=== PATIENT | male | born 1950 | race Hispanic/Latino ===

== ENCOUNTER 2018-03-10 06:35 | Day surgery (SDC) | payer MEDICARE ==
[2018-03-03 11:16] VITALS: BMI 30.7
[2018-03-10] MEDS ORDERED: Lidocaine PF 2% (5 ml) Inj (For Cardiac Arrhy) ONE (06:47)
[2018-03-10 07:14] LABS: BASO # 0.02 K/mm3 (0.0-2.0); BASO % 0.4 % (0.0-3.0); EOS # 0.3 (0.0-0.7); EOS % 5.6 % (1.5-5.0); GRAN # 3.33 (1.4-6.5); GRAN % 59.9 % (50.0-68.0); HEMOGLOBIN 14.1 g/dL (14.0-18.0); LYMPH # 1.5 (1.2-3.4); LYMPH % 27.3 % (22.0-35.0); MEAN CELL VOLUME 92.1 fl (80.0-105.0); MEAN CORPUSCULAR HGB CONC 33.7 g/dl (31.0-37.0); MONO # 0.4 (0.1-0.6); MONO % 6.8 % (1.0-6.0); RBC 4.55 10^6/uL (3.5-6.1); RED CELL DISTRIBUTION WIDTH 13.2 % (11.5-14.5); WHITE BLOOD COUNT 5.6 10^3/ul (4.5-11.0)
[2018-03-10 07:27] LABS: INR 1.08; PROTHROMBIN TIME 12.4 SECONDS (9.4-12.5)
[2018-03-10 07:30] LABS: PARTIAL THROMBOPLASTIN TIME 28.5 Seconds (25.1-36.5)
[2018-03-10 07:33] LABS: BLOOD UREA NITROGEN 14 mg/dL (7-21); CALCIUM 9.4 mg/dL (8.4-10.5); GFR AFRICAN-AMERICAN > 60; GFR NON-AFRICAN AMERICAN > 60
[2018-03-10] MEDS ORDERED: Iodixanol 320 MG/ML 200 ML BOTTLE IV ONE (08:11)
[2018-03-10] MEDS ORDERED: Midazolam 2 MG/2 ML VIAL ONE ×2 (09:09→09:27)
[2018-03-10] MEDS ORDERED: Sodium Chloride 0.9% 1,000 ML IV SCH (10:15)
--- NOTE | 2018-03-10 14:43 | CARDCATH ---
Copied To: Aguila Villanueva MD Attending MD: Aguila Villanueva MD PROCEDURE DATE: 03/10/2018 HISTORY: The patient is a 68-year-old male who presents with progressive exertional angina. His stress test was abnormal. His cardiac risk factors includes hypertension and hypercholesterolemia. Because of this, cardiac catheterization was recommended. PROCEDURE: Left heart catheterization with coronary arteriography, left ventriculogram, followed by percutaneous transluminal coronary angioplasty and stent of an ostial posterior descending artery of the right coronary artery. The right femoral artery was cannulated with a 6-Telugu sheath. There were no complications. I performed moderate sedation which included the presence of an independent trained observer that assisted in monitoring the patient's level of consciousness and physiologic status. After administration of Versed and fentanyl, my intra service time was 30 minutes. The findings on catheterization revealed a right dominant circulation. The RCA revealed 80-90% stenosis in the ostium of the PDA of the RCA. The left main artery was unremarkable. The LAD was a small vessel after the takeoff of a large diagonal vessel. In the LAD after the diagonal vessel, there was a 70-80% stenosis noted, which did not change with IC nitroglycerin. The diagonal vessel was a large vessel that paralleled and over the most of the distribution of the anterior wall. The circumflex artery and obtuse marginal branches were free of significant disease. The LV function is normal with an EF of 60%. The patient was started on intravenous Angiomax under the fluoroscopic guide, the guiding catheter was placed in the ostium of the RCA and 0.014 ATW wire was used to cross the ostial lesion of the PDA. A 3 x 8 mm drug-eluting stent was placed and deployed at the ostium of the PDA and deployed at 12 atmospheres of pressure. Repeat coronary arteriography revealed an excellent result with no residual stenosis and FAHAD III flow. Angio-Seal was used to close the femoral artery site. The patient tolerated the procedure well. In summary, the procedure was successful PTCA and stent of the RCA with a drug-eluting stent. Given these findings, the patient will need to remain on aspirin indefinitely and Plavix for least a year and undergo strict cardiac risk reduction program. We will consider angioplasty of the LAD only if the patient continues to have symptoms. The patency rate of the small LAD is decreased because of its small caliber. Aguila Villanueva MD [facility] # [id number]
[2018-03-10 17:40] VITALS: RESP 20
--- NOTE | 2018-03-10 20:53 | CARD ---
APPROVED REPORT Date of service: 03/10/2018 EKG Measurement Heart [id number] 162P45 [id number] <Conclusion> Normal sinus rhythm Normal ECG
[2018-03-11 06:47] VITALS: TEMP 97.8
[2018-03-11 07:27] LABS: BASO # 0.01 K/mm3 (0.0-2.0); BASO % 0.2 % (0.0-3.0); EOS # 0.3 (0.0-0.7); EOS % 4.4 % (1.5-5.0); GRAN # 4.25 (1.4-6.5); GRAN % 68.6 % (50.0-68.0); HEMOGLOBIN 14.6 g/dL (14.0-18.0); LYMPH # 1.2 (1.2-3.4); MEAN CELL VOLUME 90.9 fl (80.0-105.0); MEAN CORPUSCULAR HEMOGLOBIN 31.6 pg (25.0-35.0); MEAN CORPUSCULAR HGB CONC 34.8 g/dl (31.0-37.0); MEAN PLATELET VOLUME 9.1 fl (7.0-11.0); MONO # 0.4 (0.1-0.6); MONO % 6.8 % (1.0-6.0); RBC 4.62 10^6/uL (3.5-6.1); WHITE BLOOD COUNT 6.2 10^3/ul (4.5-11.0)
[2018-03-11 08:11] LABS: BLOOD UREA NITROGEN 10 mg/dL (7-21); CALCIUM 9.3 mg/dL (8.4-10.5); GFR AFRICAN-AMERICAN > 60; GFR NON-AFRICAN AMERICAN > 60
[2018-03-11 08:49] VITALS: O2SAT 97
--- NOTE | 2018-03-11 08:50 | CARD ---
APPROVED REPORT Date of service: 03/11/2018 EKG Measurement Heart [id number] [place] 152P52 [id number] <Conclusion> Normal sinus rhythm Normal ECG
--- NOTE | 2018-03-11 10:22 | PN ---
Copied To: Aguila Villanueva MD Attending MD: Aguila Villanueva MD DATE: 03/11/2018 CARDIOLOGY FOLLOWUP SUBJECTIVE: The patient is asymptomatic post PTCA. PHYSICAL EXAMINATION: VITAL SIGNS: Blood pressure varies from 163 to 187. NECK: Negative JVD. LUNGS: Without rales. HEART: Reveal S1, S2. EXTREMITIES: Without edema. The right groin site is stable. LABORATORY DATA: BUN and creatinine are unremarkable. Hemoglobin is 14.6. IMPRESSION: 1. Stable post percutaneous transluminal coronary angioplasty and stent of right coronary artery. 2. Hypertension. 3. Hypercholesterolemia. 4. Resolution of chest pain. Given these findings, the patient is stable for discharge. We will give a dose of lisinopril before his discharge given his hypertension. Followup instructions have been given to the patient in detail. Aguila Villanueva MD
[2018-03-11 10:30] VITALS: BP 164/91; PULSE 70
--- NOTE | 2018-03-13 10:04 | CARD ---
APPROVED REPORT Date of service: 03/10/2018 EKG Measurement Heart [id number] [place] 164P65 [id number] <Conclusion> Normal sinus rhythm Normal ECG
== END 2018-03-11 11:26 | disposition home or self-care (01) ==
LOC: CATH 06:35 → 2RSO 10:18 → CATH 03-11 11:26
PROVIDERS: ATTEND Internal Medicine
DX: I25.118 Atherosclerotic heart disease of native coronary artery with other forms of angina pectoris (principal); I10 Essential (primary) hypertension; E78.00 Pure hypercholesterolemia, unspecified
CPT/HCPCS: 36415 ×2; 80048 ×2; 85025 ×2; 85610; 85730; 86850; 86900; 93005 ×2; 93458; 99152; 99153; C1760; C1769 ×2; C1874; C1887; C2629; C9600; J0583; J1644; J2250; J3010; J7030; Q9966

== ENCOUNTER 2018-03-20 16:34 | Observation (INO) | payer MEDICARE ==
[2018-03-20 16:41] VITALS: BMI 29.5
--- NOTE | 2018-03-20 17:09 | ED PDOC ---
Arrival/HPI - General Chief Complaint: Chest Pain Time Seen by Provider: 03/20/18 16:39 Historian: Patient - History of Present Illness Narrative History of Present Illness (Text): 03/20/18 16:48 A 68 year old male, whose past medical history includes Coronary Artery Disease and status post cardiac cath one stent placement, presents to the emergency department complaining of left sided chest pain and dyspnea on exertion. 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 Patient notes he is taking Plavix and has a recently increased dose of Lisinopril. Patient denies any fever, chills, chest pain, shortness of breath, nausea, vomiting, diarrhea, urinary symptoms, back pain, neck pain, headache, dizziness, or any other complaints. Dial Maker: Dr. Villanueva Time/Duration: < week (6 days) Symptom Onset: Gradual Symptom Course: Unchanged Context: Home Past Medical History - Provider Review Nursing Documentation Reviewed: Yes - Infectious Disease Hx of Infectious Diseases: None - Cardiac Hx Cardiac Disorders: Yes Hx Hypertension: Yes Hx Pacemaker: No Other/Comment: cardiac stent last wk - Pulmonary Hx Respiratory Disorders: No - Neurological Hx Paralysis: No - Endocrine/Metabolic Hx Endocrine Disorders: No - Hematological/Oncological Hx Blood Disorders: No Hx Blood Transfusions: No - Integumentary Hx Dermatological Disorder: No - Musculoskeletal/Rheumatological Hx Musculoskeletal Disorders: Yes - Psychiatric Hx Emotional Abuse: No Hx Physical Abuse: No Hx Substance Use: No - Anesthesia Hx Anesthesia Reactions: No Hx Malignant Hyperthermia: No - Suicidal Assessment Feels Threatened In Home Enviroment: No Family/Social History - Physician Review Nursing Documentation Reviewed: Yes Family/Social History: Unknown Family HX Smoking Status: Unknown If Ever Smoked Hx Alcohol Use: Yes (WINE) Hx Substance Use: No Allergies/Home Meds Allergies/Adverse Reactions: Allergies No Known Allergies Allergy (Verified 03/20/18 18:38) Home Medications: Home Meds Medication Instructions Recorded Confirmed Lisinopril [Zestril] 10 mg PO DAILY 03/01/18 03/11/18 Simvastatin [Zocor] 20 mg PO DAILY 03/01/18 03/10/18 Clopidogrel [Plavix] 75 mg PO DAILY 03/10/18 03/11/18 Review of Systems - Physician Review All systems were reviewed & negative as marked: Yes - Review of Systems Constitutional: absent: Fevers, Night Sweats Respiratory: absent: SOB Cardiovascular: Chest Pain, SIBLEY. absent: Normal, Palpitations, Edema, Calf Pain , Orthopnea, Syncope Gastrointestinal: absent: Diarrhea, Nausea, Vomiting Genitourinary Male: absent: Urinary Output Changes Musculoskeletal: absent: Back Pain, Neck Pain Neurological: absent: Headache, Dizziness Physical Exam Vital Signs Reviewed: Yes Vital Signs Temp Pulse Resp BP Pulse Ox 03/20/18 18:45 68 20 158/90 H 99 03/20/18 17:54 75 18 178/97 H 95 03/20/18 16:45 98.2 F 89 18 202/99 H 97 03/20/18 16:40 98.2 F 89 18 202/99 H 97 Temperature: Afebrile Blood Pressure: Hypertensive Pulse: Regular Respiratory Rate: Normal Appearance: Positive for: Well-Appearing, Non-Toxic, Comfortable Pain Distress: None Mental Status: Positive for: Alert and Oriented X 3 - Systems Exam Head: Present: Atraumatic, Normocephalic Pupils: Present: PERRL Extroacular Muscles: Present: EOMI Conjunctiva: Present: Normal Mouth: Present: Moist Mucous Membranes Neck: Present: Normal Range of Motion Respiratory/Chest: Present: Clear to Auscultation, Good Air Exchange. No: Respiratory Distress, Accessory Muscle Use Cardiovascular: Present: Regular Rate and Rhythm, Normal S1, S2. No: Murmurs Abdomen: No: Tenderness, Distention, Peritoneal Signs Back: Present: Normal Inspection Upper Extremity: Present: Normal Inspection. No: Cyanosis, Edema Lower Extremity: Present: Normal Inspection. No: Edema Neurological: Present: GCS=15, CN II-XII Intact, Speech Normal Skin: Present: Warm, Dry, Normal Color. No: Rashes Psychiatric: Present: Alert, Oriented x 3, Normal Insight, Normal Concentration Medical Decision Making ED Course and Treatment: 03/20/18 17:12 Impression: A 68 year old male presenting to the emergency department complaining of left sided chest pain and dyspnea on exertion. Plan: -- EKG -- Labs -- CBC -- COAG -- Chest X-ray -- Aspirin -- Urinalysis -- Reassess and disposition Prior Visits: Notes and results from previous visits were reviewed. Progress Notes: 03/20/18 17:[address] Uribe, who is aware and agrees with the Emergency Department management plan to admit patient to telemetry for further observation. 03/20/18 17:50 EKG: Ordered, reviewed, and independently interpreted the EKG. Rate : 89 BPM Rhythm : NSR Interpretation : No ST-segment elevations or depressions, no T-wave inversions, normal intervals. - Lab Interpretations Lab Results: 03/20/18 16:50 03/20/18 16:50 Lab Results 03/20/18 16:50: PT 12.5, INR 1.09, APTT 28.0 03/20/18 16:50: Sodium 142, Potassium 3.9, Chloride 104, Carbon Dioxide 26, Anion Gap 16, BUN 19, Creatinine 0.9, Est GFR ( Amer) > 60, Est GFR (Non- Af Amer) > 60, Random Glucose 100, Calcium 9.4, Magnesium 1.9, Total Bilirubin 0.8, AST 26, ALT 29, Alkaline Phosphatase 48, Lactate Dehydrogenase 446, Total Creatine Kinase 49, Troponin I < 0.01, NT-Pro-B Natriuret Pep 52.1, Total Protein 7.9, Albumin 4.7, Globulin 3.2, Albumin/Globulin Ratio 1.5 03/20/18 16:50: WBC 6.7, RBC 4.44, Hgb 13.8 L, Hct 40.5 L, MCV 91.2, MCH 31.1, MCHC 34.1, RDW 12.8, Plt Count 216, MPV 9.3, Gran % 54.2, Lymph % (Auto) 30.1, [place] % (Auto) 7.1 H, Eos % (Auto) 8.3 H, Baso % (Auto) 0.3, Gran # 3.61, Lymph # (Auto) 2.0, [place] # (Auto) 0.5, Eos # (Auto) 0.6, Baso # (Auto) 0.02 - RAD Interpretation Radiology Orders: 03/20/18 16:52 CHEST PORTABLE [RAD] Stat - Medication Orders Current Medication Orders: Ibuprofen (Motrin Tab) 600 mg PO Q6H PRN PRN Reason: Pain, moderate (4-7) Discontinued Medications Aspirin (Aspirin) 325 mg PO STAT STA Stop: 03/20/18 16:52 Last Admin: 03/20/18 17:11 Dose: 325 mg - Scribe Statement The provider has reviewed the documentation as recorded by the Yevgeniy Wilkins All medical record entries made by the Yevgeniy were at my direction and personally dictated by me. I have reviewed the chart and agree that the record accurately reflects my personal performance of the history, physical exam, medical decision making, and the department course for this patient. I have also personally directed, reviewed, and agree with the discharge instructions and disposition. Disposition/Present on Arrival - Present on Arrival Any Indicators Present on Arrival: No History of DVT/PE: No History of Uncontrolled Diabetes: No Urinary Catheter: No History of Decub. Ulcer: No History Surgical Site Infection Following: None - Disposition Have Diagnosis and Disposition been Completed?: Yes Diagnosis: Chest pain Disposition: HOSPITALIZED Disposition Time: 17:30 Condition: STABLE
[2018-03-20 17:20] LABS: BASO # 0.02 K/mm3 (0.0-2.0); BASO % 0.3 % (0.0-3.0); EOS # 0.6 (0.0-0.7); EOS % 8.3 % (1.5-5.0); GRAN # 3.61 (1.4-6.5); GRAN % 54.2 % (50.0-68.0); HEMOGLOBIN 13.8 g/dL (14.0-18.0); LYMPH % 30.1 % (22.0-35.0); MEAN CELL VOLUME 91.2 fl (80.0-105.0); MEAN CORPUSCULAR HEMOGLOBIN 31.1 pg (25.0-35.0); MEAN CORPUSCULAR HGB CONC 34.1 g/dl (31.0-37.0); MEAN PLATELET VOLUME 9.3 fl (7.0-11.0); MONO # 0.5 (0.1-0.6); MONO % 7.1 % (1.0-6.0); RBC 4.44 10^6/uL (3.5-6.1); RED CELL DISTRIBUTION WIDTH 12.8 % (11.5-14.5); WHITE BLOOD COUNT 6.7 10^3/ul (4.5-11.0)
[2018-03-20 17:23] LABS: INR 1.09; PROTHROMBIN TIME 12.5 SECONDS (9.4-12.5)
[2018-03-20 17:25] LABS: B-TYPE NATRIURETIC PEPTIDE 52.1 pg/mL (0-450); TROPONIN I < 0.01 ng/mL
[2018-03-20 17:27] LABS: ALB/GLOB RATIO 1.5 (1.1-1.8); ALBUMIN 4.7 g/dL (3.0-4.8); ALT/SGPT 29 U/L (7-56); AST/SGOT 26 U/L (17-59); BLOOD UREA NITROGEN 19 mg/dL (7-21); CALCIUM 9.4 mg/dL (8.4-10.5); GFR AFRICAN-AMERICAN > 60; GFR NON-AFRICAN AMERICAN > 60
--- NOTE | 2018-03-20 19:40 | CARD ---
APPROVED REPORT Date of service: 03/20/2018 EKG Measurement Heart [id number] RI 154P52 [id number] <Conclusion> Poor data quality, interpretation may be adversely affected Normal sinus rhythm Normal ECG
--- NOTE | 2018-03-21 03:22 | CP.PCM.PN ---
Subjective - Date & Time of Evaluation Date of Evaluation: 03/21/18 Time of Evaluation: 03:18 - Subjective Subjective: Ovidio Marley, PGY-1, Internal Medicine Progress note for Dr. Serrano 68 year old male with past medical history of CAD and status post cardiac cath stent placement presents with pressure like left sided chest pain and dyspnea on exertion. Patient seen and evaluated. Patient reports pressure like chest pain and dyspnea but does not report heart palpitations, jaw pain, left arm pain , or nausea or back pain. Objective - Vital Signs/Intake and Output Vital Signs (last 24 hours): Temp Pulse Resp BP Pulse Ox 98.2 F 68 18 158/90 H 99 03/20/18 16:45 03/20/18 18:45 03/21/18 00:04 03/20/18 18:45 03/20/18 18:45 - Medications Medications: Current Medications Ibuprofen (Motrin Tab) 600 mg PO Q6H PRN PRN Reason: Pain, moderate (4-7) - Labs Labs: PT 12.5 SECONDS (9.4-12.5) 03/20/18 16:50 INR 1.09 03/20/18 16:50 APTT 28.0 Seconds (25.1-36.5) 03/20/18 16:50 - Constitutional Appears: Well, Non-toxic - Head Exam Head Exam: ATRAUMATIC, NORMOCEPHALIC - Eye Exam Eye Exam: EOMI, Normal appearance, PERRL Pupil Exam: NORMAL ACCOMODATION, PERRL - ENT Exam ENT Exam: Mucous Membranes Moist, Normal Exam - Neck Exam Neck Exam: Full ROM, Normal Inspection. absent: Lymphadenopathy - Respiratory Exam Respiratory Exam: Clear to Ausculation Bilateral, NORMAL BREATHING PATTERN - Cardiovascular Exam Cardiovascular Exam: REGULAR RHYTHM, +S1, +S2. absent: Murmur - GI/Abdominal Exam GI & Abdominal Exam: Soft, Normal Bowel Sounds. absent: Tenderness - Extremities Exam Extremities Exam: Full ROM, Normal Capillary Refill, Normal Inspection. absent : Joint Swelling, Pedal Edema - Back Exam Back Exam: NORMAL INSPECTION - Neurological Exam Neurological Exam: Alert, Awake, CN II-XII Intact, Normal Gait, Oriented x3 - Psychiatric Exam Psychiatric exam: Normal Affect, Normal Mood - Skin Skin Exam: Dry, Intact, Normal Color, Warm Assessment and Plan - Assessment and Plan (Free Text) Assessment: 68 year old male with past medical history of coronary artery disease and status post cardiac cath with one stent placement presents with left sided chest pain and dyspnea. Plan: Chest pain 2/2 to ACS vs. MSK vs. pleuritis/pericarditis -EKG was ordered which showed normal sinus rhythm with a heart rate of 89. -Troponinsx3 was ordered. 2 troponins have shown troponin<0.01. Awaiting 3rd troponin level. -Motrin 600 mg Q6PRN for pain. -Start aspirin 81 daily -Continued home dose of plavix, lisinopril, and simvastatin. -Heart healthy diet -Dr. Villanueva, fast food shift lead, consulted for recommendations. Patient plan discussed with Dr. Serrano.
[2018-03-21 06:26] VITALS: O2SAT 95
--- NOTE | 2018-03-21 08:36 | RAD ---
Date of service: 03/20/2018 HISTORY: chest pain COMPARISON: No prior. FINDINGS: LUNGS: The lungs are well inflated and clear. PLEURA: No significant pleural effusion identified, no pneumothorax apparent. CARDIOVASCULAR: Normal. OSSEOUS STRUCTURES: No significant abnormalities. VISUALIZED UPPER ABDOMEN: Normal. OTHER FINDINGS: None. IMPRESSION: No active pulmonary disease.
--- NOTE | 2018-03-21 10:08 | HP ---
HISTORY OF PRESENT ILLNESS: The patient is a 68 year old man with a past medical history of hypertension, hyperlipidemia and CAD s/p PCI with GONZALO stent placement to the RCA who presented for evaluation of a several day history of substernal and left-sided chest pain. The patient states that approximately 1 day after his cardiac catheterization with stent placement he developed a mild left-sided chest discomfort that resolved spontaneously after about 24 hours. The patient states that since then, he has been experiencing intermittent chest pain which he described as pressure like. He states the symptoms occur both at rest and with exertion. On the day of presentation to the ED he was at [facility] with his grandchildren when he developed a severe pressure-like pain to the substernal region, as well as overlying his left pectoral muscle. He also reported associated dyspnea with the symptoms. He presented to his PMD for evaluation and, at that time, appeared to be in moderate distress secondary to pain and was advised to present to the ED for further evaluation. Upon arrival to the ED, he was found to be hypertensive with a blood pressure of 202/99, but otherwise examination in the ED was unremarkable. Initial troponin and EKG were negative and the patient was admitted to the telemetry haro to cycle cardiac enzymes and for cardiac evaluation with Dr. Villanueva. PAST MEDICAL HISTORY: As per HPI. PAST SURGICAL HISTORY: As per HPI. ALLERGIES NKDA. MEDICATIONS: Aspirin 81 mg p.o. daily, Plavix 75 mg p.o. daily, Lisinopril 20 mg p.o. daily and Lipitor 10 mg p.o. daily. FAMILY HISTORY: Noncontributory. SOCIAL HISTORY: The patient reports social alcohol use and denies tobacco use or illicit drug abuse. REVIEW OF SYSTEMS: The 12 point review of systems is negative except as per HPI. PHYSICAL EXAMINATION: VITAL SIGNS: Temperature 98, pulse 65, blood pressure 162/95, respiratory rate 20, oxygen saturation 95% on room air. GENERAL: No apparent distress. HEENT: PERRL, EOMI. No scleral icterus. No conjunctival pallor. NECK: No JVD, no bruits. LUNGS: Clear to auscultation. CARDIOVASCULAR: Regular rate and rhythm. Normal S1, S2. No murmurs, rubs or gallops. ABDOMEN: Normoactive bowel sounds. Soft, nontender, nondistended. EXTREMITIES: No edema. NEUROLOGIC: Awake, alert and oriented x 3. No focal motor deficits. LABORATORY DATA: Morning labs are pending. Troponin less than 0.01 for 3 sets. IMAGING STUDIES: Chest x-ray demonstrates no acute pathology. ASSESSMENT: The patient is a 68 year old man with a past medical history of hypertension, hyperlipidemia and CAD s/p PCI with GONZALO stent placement to the RCA who presented for evaluation of a several day history of substernal and left-sided chest pressure. PLAN: 1. Angina. The patient reports resolution of his chest pain since admission. Incidentally, he did report the chest pain started after he initiated Plavix. We will discontinue Plavix and place the patient on Effient [address] Villanueva of Cardiology has been consulted for further evaluation and recommendations. We will obtain a TTE to assess for pericardial effusion. EKG not suggestive of pericarditis. 2. CAD s/p PCI with GONZALO placement. Resume Aspirin 81 mg p.o. daily and Lipitor 10 mg p.o. daily. As above, we will discontinue Plavix and start Effient 10 mg p.o. daily. 3. Hypertension. Resume Lisinopril 20 mg p.o. daily. 4. Hyperlipidemia. Resume Lipitor 10 mg p.o. daily. 5. Prophylaxis. GI prophylaxis not indicated as the patient is eating. DVT prophylaxis not indicated as the patient is ambulatory. Code Status: Full code. Willie Uribe MD GIUSEPPE
--- NOTE | 2018-03-21 11:28 | CARD ---
APPROVED REPORT Date of service: 03/21/2018 EKG Measurement Heart [id number] RI 174P47 [id number] <Conclusion> Sinus bradycardia Otherwise normal ECG
--- NOTE | 2018-03-21 11:28 | CARD ---
APPROVED REPORT Date of service: 03/21/2018 EKG Measurement Heart [id number] [place] 176P47 [id number] <Conclusion> Sinus bradycardia Otherwise normal ECG
--- NOTE | 2018-03-21 11:34 | CARD ---
APPROVED REPORT Date of service: 03/20/2018 EKG Measurement Heart [id number] [place] 172P48 [id number] <Conclusion> Normal sinus rhythm Normal ECG
[2018-03-21 12:04] VITALS: BP 170/80; RESP 18; TEMP 97.4
--- NOTE | 2018-03-21 14:35 | CON ---
Copied To: Aguila Villanueva MD Attending MD: Aguila Villanueva MD DATE: 03/21/2018 CARDIOLOGY CONSULTATION HISTORY: The patient is a 68-year-old male, who presents with persistent chest pain. The patient's past medical history includes PTCA and stent. PTCA and stent performed on 03/10/2018. At that time, the patient had experienced ongoing exertional shortness of breath and chest pain. A drug-eluting stent was placed and deployed at the ostium of the PDA. There is a small LAD with a 70-80% stenosis, but was not manipulated because of the small caliber of the vessel. Currently, the patient was exercising and ambulating and has now developed focal chest pain. The pain is described as pleuritic in nature, increased with inspiration. During the process of going from lying down to sitting up, there is marked tenderness in the chest noted. His cardiac risk factors include hypercholesterolemia and hypertension. SOCIAL HISTORY: He is a former smoker. REVIEW OF SYSTEMS: A 14-point review of systems is reviewed in detail. No other cardiac symptoms are noted. PHYSICAL EXAMINATION: VITAL SIGNS: Blood pressure is 162/95, the heart rate is in the 60s. NECK: Negative JVD. LUNGS: Without rales. HEART: Reveals S1, S2. EXTREMITIES: Without edema. CHEST: The tenderness in the chest is reproducible on palpation. EKG shows normal sinus rhythm with no acute changes. LABORATORY DATA: Troponins are negative x3. The white count is 13.8. Echocardiogram reveals good LV function with no pericardial effusion. IMPRESSION: 1. Recurrent chest pain. 2. Musculoskeletal chest wall pain is the most likely cause. 3. Stable angina. 4. No evidence for acute coronary syndrome. 5. Hypertension. 6. History of percutaneous transluminal coronary angioplasty and stent. 7. Hypercholesterolemia. PLAN: Given these findings, we will give the patient a trial of Motrin. If his pain is better, the patient can be discharged. We will continue the patient on his current medications. Aguila Villanueva MD
[2018-03-21 15:21] VITALS: PULSE 72
--- NOTE | 2018-03-22 09:50 | DS ---
ADMISSION DIAGNOSIS: Atypical chest pain. DISCHARGE DIAGNOSIS: Musculoskeletal chest wall pain. SECONDARY DIAGNOSES: CAD s/p PCI with GONZALO stent placement, hypertension and hyperlipidemia. CONSULTATIONS: Dr. Villanueva (Cardiology). IMAGING STUDIES: Chest x-ray demonstrated no acute pathology. PROCEDURES: None. HISTORY OF PRESENT ILLNESS: The patient is a 68 year old man with a past medical history of hypertension, hyperlipidemia and CAD s/p PCI with GONZALO stent placement to the RCA who presented for evaluation of several day history of substernal left-sided chest pain. The patient states that approximately 1 day after his cardiac catheterization with stent placement he developed a mild left-sided chest discomfort that resolved spontaneously after about 24 hours. The patient states that since then he has been experiencing intermittent chest pain which he described as pressure like. He states the symptoms occur both at rest and with exertion. On the day of presentation to the ED, he was at [facility] with his grandchildren when he developed a severe pressure-like pain to the substernal region as well as overlying his left pectoral muscle. He also reported associated dyspnea with these symptoms. Given his underlying cardiac history, he opted for ED evaluation. Upon arrival to the ED he was found to be hypertensive with a blood pressure of 202/99 but otherwise examination was unremarkable. An initial troponin and EKG were also unremarkable and the patient was admitted to the telemetry haro to cycle cardiac enzymes and for cardiac evaluation with Dr. Villanueva. HOSPITAL COURSE: Upon admission to the telemetry haro he was started on Motrin and reported significant improvement in his chest discomfort. He underwent an echocardiogram which disclosed no abnormalities and was advised that the etiology of his chest pain was likely musculoskeletal in nature. The patient reported definitive improvement after administration of NSAIDs and denied any further cardiopulmonary symptoms and as such was cleared for discharge to home. CONDITION: Good, improved. DISPOSITION: Home. DISCHARGE MEDICATIONS: Lisinopril 20 mg p.o. daily, Aspirin 81 mg p.o. daily, Plavix 75 mg p.o. daily, Lipitor 10 mg p.o. daily, and Motrin 800 mg p.o. t.i.d. p.r.n. pain. DISCHARGE INSTRUCTIONS: The patient was advised if he has any recurrence of his symptoms to present to his PMD or to the nearest ED immediately. The patient was advised to refrain from heavy lifting or repetitive motions in his left upper extremity so as to minimize recurrence of this pain. FOLLOWUP: The patient to follow up with his PMD within 1 week of discharge. The patient to follow up with Dr. Villanueva as scheduled. Willie Uribe MD GIUSEPPE
== END 2018-03-21 15:55 | disposition home or self-care (01) ==
LOC: ED 16:34 → ERH 17:49 → 2RNO 19:23
PROVIDERS: ADMIT Student in an Organized Health Care Education/Training Program; ATTEND Student in an Organized Health Care Education/Training Program
DX: R07.89 Other chest pain (principal); I10 Essential (primary) hypertension; E78.00 Pure hypercholesterolemia, unspecified; E78.5 Hyperlipidemia, unspecified; I25.118 Atherosclerotic heart disease of native coronary artery with other forms of angina pectoris; Z95.5 Presence of coronary angioplasty implant and graft; Z79.02 Long term (current) use of antithrombotics/antiplatelets; Z87.891 Personal history of nicotine dependence
CPT/HCPCS: 36415; 71045; 80053; 82550; 83615; 83735; 83880; 84484; 85025; 85610; 85730; 93005; 93306; 99285; G0378

== ENCOUNTER 2018-04-13 08:50 | Day surgery (SDC) | payer MEDICARE ==
[2018-04-12 14:21] VITALS: BMI 32.5
[2018-04-13 09:30] LABS: BASO # 0.02 K/mm3 (0.0-2.0); BASO % 0.3 % (0.0-3.0); EOS # 0.4 (0.0-0.7); EOS % 5.5 % (1.5-5.0); GRAN # 4.64 (1.4-6.5); GRAN % 64.4 % (50.0-68.0); HEMOGLOBIN 14.3 g/dL (14.0-18.0); LYMPH # 1.5 (1.2-3.4); LYMPH % 20.2 % (22.0-35.0); MEAN CELL VOLUME 92.9 fl (80.0-105.0); MEAN CORPUSCULAR HEMOGLOBIN 31.8 pg (25.0-35.0); MEAN CORPUSCULAR HGB CONC 34.3 g/dl (31.0-37.0); MONO # 0.7 (0.1-0.6); MONO % 9.6 % (1.0-6.0); RBC 4.49 10^6/uL (3.5-6.1); RED CELL DISTRIBUTION WIDTH 13.2 % (11.5-14.5); WHITE BLOOD COUNT 7.2 10^3/ul (4.5-11.0)
[2018-04-13 09:37] LABS: BLOOD UREA NITROGEN 12 mg/dL (7-21); CALCIUM 9.4 mg/dL (8.4-10.5); GFR NON-AFRICAN AMERICAN > 60; HDL CHOLESTEROL 39 mg/dL (29-60)
[2018-04-13 09:38] LABS: INR 1.06; PARTIAL THROMBOPLASTIN TIME 28.3 Seconds (25.1-36.5); PROTHROMBIN TIME 12.2 SECONDS (9.4-12.5)
[2018-04-13 09:47] LABS: LDL CHOLESTEROL 94 mg/dL (0-129)
--- NOTE | 2018-04-13 11:21 | CARD ---
APPROVED REPORT Date of service: 04/13/2018 EKG Measurement Heart [id number] [place] 146P-1 [id number] <Conclusion> Normal sinus rhythm Normal ECG
[2018-04-13] MEDS ORDERED: Iodixanol 320 MG/ML 200 ML BOTTLE IV ONE (11:41)
[2018-04-13] MEDS ORDERED: Midazolam 2 MG/2 ML VIAL ONE ×3 (12:20→12:56)
[2018-04-13] MEDS ORDERED: Morphine 2 mg/ml ISec ONE (13:03)
[2018-04-13] MEDS ORDERED: Sodium Chloride 0.9% 1,000 ML IV SCH (13:30)
--- NOTE | 2018-04-13 15:59 | CARD ---
APPROVED REPORT Date of service: 04/13/2018 EKG Measurement Heart [id number] <Conclusion> Sinus bradycardia Otherwise normal ECG
--- NOTE | 2018-04-13 16:13 | HP ---
HISTORY OF PRESENT ILLNESS: The patient is a 68-year-old man with a past medical history of hypertension, hyperlipidemia and CAD s/p PCI with GONZALO stent placement who presented for cardiac catheterization after undergoing an abnormal nuclear stress test. The patient recently underwent cardiac catheterization with placement of drug- eluting stent to the RCA and was noted to have persistent chest heaviness following his catheterization. He followed up with Dr. Villanueva and was sent for a nuclear stress test which demonstrated reversible apical and inferior defects suspicious for ischemia. As such the patient was scheduled for a repeat cardiac catheterization. The patient underwent successful cardiac catheterization with Dr. Villanueva with placement of drug-eluting stents and was subsequently transferred to the telemetry haro for post cardiac catheterization care. PAST MEDICAL HISTORY: As per HPI. PAST SURGICAL HISTORY: As per HPI. ALLERGIES: NKDA. MEDICATIONS: Aspirin 81 mg p.o. daily, Plavix 75 mg p.o. daily, Lisinopril 20 mg p.o. daily, Lipitor 10 mg p.o. daily. FAMILY HISTORY: Noncontributory. SOCIAL HISTORY: The patient reports social alcohol use, but denies tobacco use or illicit drug abuse. REVIEW OF SYSTEMS: A 12-point review of systems is negative except as per HPI. PHYSICAL EXAMINATION: VITAL SIGNS: Temperature 97.9, pulse 73, blood pressure 193/92, respiratory rate 20, oxygen saturation 94% on room air. GENERAL: No apparent distress. HEENT: PERRL, EOMI. No scleral icterus. No conjunctival pallor. NECK: No JVD. No bruits. LUNGS: Clear to auscultation. CARDIOVASCULAR: Regular rate and rhythm. Normal S1 and S2. No murmurs, rubs or gallops. ABDOMEN: Normoactive bowel sounds. Soft, nontender and nondistended. EXTREMITIES: No edema. Cardiac catheterization site appears clean, dry and intact with no femoral bruit or hematoma. NEUROLOGIC: Awake, alert and oriented x 3. No focal motor deficits. LABORATORY DATA: CBC reviewed and unremarkable. BMP reviewed and unremarkable. ASSESSMENT: The patient is a 68-year-old man with a past medical history of hypertension, hyperlipidemia and CAD s/p PCI with GONZALO stent placement who presented for scheduled cardiac catheterization after undergoing an abnormal nuclear stress test for evaluation of angina. PLAN: 1. CAD s/p PCI with GONZALO placement. Continue with postcatheterization care as per Dr. Villanueva. Resume Aspirin 81 mg p.o. daily, Plavix 75 mg p.o. daily and Lipitor 10 mg p.o. daily. 2. Hypertension. Resume Lisinopril 20 mg p.o. daily. 3. Hyperlipidemia. Resume Lipitor 10 mg p.o. daily. 4. Prophylaxis. GI prophylaxis is not indicated as the patient is eating. DVT prophylaxis is not indicated as the patient is ambulatory. CODE STATUS: Full code. Willie Uribe MD MTDD
--- NOTE | 2018-04-13 17:13 | CARDCATH ---
PROCEDURE DATE: 04/13/2018 CARDIAC CATHETERIZATION AND PTCA HISTORY: The patient is a 68-year-old male who has documented coronary artery disease. He is status post PTCA and stent of an RCA several weeks ago. His LAD which also had critical lesions with a small-vessel and it was decided to treat the patient medically. After attempted medical therapy, the patient continued to experience chest pain and presented with again an abnormal stress test with ischemia in the LAD distribution, the patient was brought back for cardiac catheterization. PROCEDURE: Left heart catheterization with coronary arteriography followed by PTCA and stent of an LAD and diagonal vessel. The left femoral artery was cannulated with a 6-Macedonian sheath. There were no complications. I performed moderate sedation which included the presence of an independent trained observer that assisted in monitoring the patient's level of consciousness and physiologic status. After administration of Versed and fentanyl, my intra-service time was 30 minutes. The findings on catheterization revealed right dominant circulation. The RCA stent at the takeoff of the PDA was patent. The left main artery was unremarkable. The LAD after the takeoff of a large septal criminalist revealed 70%-80% stenosis, tandem lesion with a second 70%-80% stenosis in a small size vessel. The proximal portion of the diagonal vessel which was a moderate size vessel revealed a 60% stenosis. The patient was started on intravenous Angiomax on the fluoroscopic guide, the guiding catheter was placed in the ostium of the left main artery, 200 mcg of IC nitroglycerin was given. An ATW wire was used to cross the critical lesion in the LAD. A 2.25 drug-eluting stents were placed and deployed in the LAD. After balloon deflation and removal, repeat coronary arteriography revealed an excellent result with resolution of the lesions and increased diameter of the entire LAD vessel. The wire was then brought back and placed into the diagonal vessel. A 2.5 x 8 mm drug-eluting stent was placed and deployed at 18 atmospheres of pressure. Repeat coronary arteriography revealed an excellent result with no residual stenosis and FAHAD III flow. Angio-Seal was used to close the femoral artery site. The patient tolerated the procedure well. In summary, the procedure was successful for PTCA and stent of two lesions in the LAD as well as one lesion in the diagonal vessel with drug-eluting stents. Cardiac catheterization reveals a patent stent in the RCA that was previously placed several weeks ago. Given these findings, the patient's treatment will be continued aspirin, Plavix for at least a year and he needs to undergo a strict cardiac risk reduction program. Aguila Villanueva MD
[2018-04-14 05:39] VITALS: TEMP 97.7
[2018-04-14 07:15] LABS: BASO # 0.02 K/mm3 (0.0-2.0); BASO % 0.3 % (0.0-3.0); EOS # 0.5 (0.0-0.7); EOS % 7.5 % (1.5-5.0); GRAN # 4.25 (1.4-6.5); GRAN % 69.3 % (50.0-68.0); HEMOGLOBIN 13.4 g/dL (14.0-18.0); LYMPH % 16.9 % (22.0-35.0); MEAN CELL VOLUME 93.3 fl (80.0-105.0); MEAN CORPUSCULAR HEMOGLOBIN 30.9 pg (25.0-35.0); MEAN CORPUSCULAR HGB CONC 33.2 g/dl (31.0-37.0); MONO # 0.4 (0.1-0.6); RBC 4.33 10^6/uL (3.5-6.1); RED CELL DISTRIBUTION WIDTH 13.1 % (11.5-14.5); WHITE BLOOD COUNT 6.1 10^3/ul (4.5-11.0)
[2018-04-14 07:33] LABS: BLOOD UREA NITROGEN 16 mg/dL (7-21); CALCIUM 8.6 mg/dL (8.4-10.5); GFR NON-AFRICAN AMERICAN > 60
[2018-04-14 09:18] VITALS: PULSE 71
[2018-04-14 09:23] VITALS: BP 166/88; RESP 18; O2SAT 99
--- NOTE | 2018-04-14 11:38 | PN ---
DATE: 04/14/2018 CARDIOLOGY FOLLOWUP SUBJECTIVE: The patient is chest pain free. He is feeling well post angioplasty. PHYSICAL EXAMINATION: VITAL SIGNS: Blood pressure is 153/86, heart rate is in the 60s. NECK: Negative JVD. LUNGS: Without rales. HEART: Reveal S1, S2. EXTREMITIES: Without edema. LABORATORY DATA: Hemoglobin is 13.4. Chemistries are unremarkable. Glucose is 162. IMPRESSION: 1. Stable post percutaneous transluminal coronary angioplasty and stent of an left anterior descending artery and diagonal vessel. 2. Multivessel coronary artery disease. 3. Hypertension. 4. Hypercholesterolemia. 5. Borderline diabetes mellitus. Given these findings, the patient is stable for discharge. I will suggest that we change his Zocor to Lipitor for better cholesterol control. I have discussed the patient about a low-carbohydrate diet to avoid development of diabetes mellitus. Aguila Villanueva MD
--- NOTE | 2018-04-15 07:35 | DS ---
HISTORY OF PRESENT ILLNESS: The patient is a 68-year-old white male who presented for a cardiac catheterization after having had an abnormal stress test performed. The patient yesterday morning was taken in to the cardiac cath lab radiology technologist by Dr. Aguila Villanueva. He had a PTCA on the RCA with a stent. His LAD was small vessel and it was decided to treat the patient medically. The patient continued to experience chest pains. He was taken back to the cardiac cardiac cath lab radiology technologist. During the cath, the patient had a 2.25 drug-eluting stent to the LAD with 2.5 x 8 mm stent put in the diagonal vessel. The patient came through the procedure well and he will be discharged today on current medications. He will be followed up in the office in a week's duration. DISCHARGE DIAGNOSES 1. Coronary artery disease status post stent. 2. Hyperlipidemia. 3. Hypertension. Avila Uribe MD
== END 2018-04-14 10:18 | disposition home or self-care (01) ==
LOC: CATH 08:50 → 2RSO 13:45 → CATH 04-14 10:18
PROVIDERS: ATTEND Internal Medicine Cardiovascular Disease
DX: I25.10 Atherosclerotic heart disease of native coronary artery without angina pectoris (principal); I10 Essential (primary) hypertension; E78.5 Hyperlipidemia, unspecified; Z79.82 Long term (current) use of aspirin; Z95.5 Presence of coronary angioplasty implant and graft
CPT/HCPCS: 36415 ×2; 80048 ×2; 80061; 85025 ×2; 85610; 85730; 86850; 86900; 93005; 93454; 99152; 99153; C1725; C1760; C1769 ×2; C1874 ×3; C1887; C2629; C9600; J0583; J1644; J2250; J2270; J3010; J7030; Q9966